=== PATIENT | female | born 1995 | race Hispanic/Latino ===

== ENCOUNTER 2024-04-25 22:19 | Emergency (ER) | payer SELFPAY ==
[~2024-04-25] VITALS: Ht 160 cm; Wt 77.1 kg
[2024-04-25] MEDS: FAMOTIDINE 20MG VIAL IV ONE (22:43)
[2024-04-25] MEDS: 0.9%NACL 1000ML 1,000 ML IV ONE (22:43)
[2024-04-25] MEDS: ondanSETRON 4MG INJ IVP ONE (22:43)
[2024-04-25 22:47] LABS: BASOPHILS # (AUTO) 0.06 K/uL (0.00-0.20); BASOPHILS % (AUTO) 0.5 % (0.0-5.0); EOSINOPHILS % (AUTO) 0.9 % (0.0-8.0); HEMATOCRIT 45.2 % (36-48); IMMATURE GRANULOCYTE ABSOLUTE 0.04 K/uL (0-1); LYMPHOCYTES # (AUTO) 4.2 K/uL (1.0-4.8); LYMPHOCYTES % (AUTO) 38.4 % (21.0-51.0); MEAN CORPUSCULAR HEMOGLOBIN 29.7 pg (27.0-33.0); MEAN CORPUSCULAR HGB CONC 34.3 g/dL (32.0-36.0); MEAN CORPUSCULAR VOLUME 86.6 fL (79-99); MONOCYTES # (AUTO) 0.8 K/uL (0.1-1.0); MONOCYTES % (AUTO) 6.8 % (3.0-13.0); NEUTROPHILS # (AUTO) 5.8 K/uL (1.8-7.7); PLATELET COUNT (AUTO) 256 K/uL (130-400); RED BLOOD CELL COUNT(AUTO) 5.22 MIL/uL (4.00-5.50); RED CELL DISTRIBUTION WIDTH 12.3 % (11.0-15.5)
[2024-04-25 22:59] LABS: CREATININE 1.1 mg/dL (0.5-1.0); POTASSIUM 4.3 mmol/L (3.5-5.1)
[2024-04-25 23:03] LABS: BILIRUBIN,DIRECT 0.1 mg/dL (0.0-0.3); BILIRUBIN,TOTAL 0.4 mg/dL (0.2-1.0)
[2024-04-25 23:06] LABS: APPEARANCE,URINE CLEAR (CLEAR); BILIRUBIN,URINE NEGATIVE (NEGATIVE); COLOR,URINE YELLOW (YELLOW); GLUCOSE, URINE (UA) NEGATIVE (NEGATIVE); KETONES,URINE NEGATIVE (NEGATIVE); LEUKOCYTE ESTERASE ,URINE NEGATIVE Leu/uL (NEGATIVE); NITRATE,URINE NEGATIVE (NEGATIVE); OCCULT BLOOD,URINE NEGATIVE (NEGATIVE); PROTEIN,URINE 10 mg/dL (NEGATIVE); UROBILINOGEN,URINE 0.2 mg/dL (0.2-1.0)
[2024-04-25 23:09] LABS: ADD UA MICROSCOPIC YES
[2024-04-25 23:10] LABS: BACTERIA,URINE FEW /HPF (None Seen); MUCUS,URINE RARE LPF (None Seen); SQUAMOUS EPITHELIAL CELL,UR RARE /HPF (0-2)
[2024-04-25] MEDS: DICYCLOMINE HCL 10 MG/5 ML ML PO ONE (23:15)
[2024-04-25] MEDS: MAG/ALUM/SIMETH 30 ML UDCUP PO ONE (23:15)
[2024-04-25] MEDS: LIDOCAINE HCL 2% VISCOUS 15 ML UDCUP PO ONE (23:15)
--- NOTE | 2024-04-26 00:20 | HMCIMG ---
CT ABDOMEN/PELVIS W/O CONTRAST HISTORY: Abnormal pain COMPARISON: None TECHNIQUE: Multiple sequential axial images of the abdomen and pelvis were obtained from the dome of the diaphragm through symphysis pubis. Patient was not given contrast through intravenous route. Oral contrast was not given. FINDINGS: No pleural effusion is seen bilaterally. There is no evidence of parenchymal disease or pulmonary nodule of the visualized lower lungs. Degenerative changes of the thoracolumbar spine are present. The heart is not enlarged. Postcholecystectomy changes are seen. Liver is enlarged measuring 16 cm. The liver, spleen, adrenal glands and pancreas are unremarkable. There is no evidence of hydronephrosis bilaterally. No evidence of renal stone is seen. Fecal material is seen in the colon. There are normal size retroperitoneal and mesenteric lymph nodes. No ascites is seen. No CT evidence of acute appendicitis is seen. Pelvic sidewalls are symmetric bilaterally. Bladder is poorly distended. IMPRESSION: 1. No acute findings. CT was performed with one or more following dose reduction techniques: automated exposure control, adjustment of the mA and kv according to patient's size, or use of a iterative reconstruction technique.
[2024-04-26] MEDS ORDERED: ONDA-243 PO (00:26)
[2024-04-26] MEDS ORDERED: FAMO-136 PO (00:26)
--- NOTE | 2024-04-26 00:30 | ERN ---
General Chief Complaint: Abdominal Pain Stated Complaint: ABD PAIN Time Seen by MD: 22:21 Time Seen by Midlevel: 22:21 Source: patient History of Present Illness Initial Comments Patient is a 29-year-old female with a past medical history of gastritis presenting to the emergency department with midepigastric abdominal pain. She also reports hot flushes. Denies any fever, chills, or any other symptoms at this time. On arrival she does report feeling anxious because her mom has been diagnosed with colon cancer in his concerned that she may have cancer. She does not have a primary care doctor at this time. Denies any surgical history. No other symptoms reported at this time. Allergies: Coded Allergies: No Known Drug Allergies (Unverified Allergy, Unknown, 04/25/24) Home Meds Active Scripts Famotidine (Pepcid) 20 Mg Tablet, 1 TAB PO BID for 10 Days, #20 TAB 0 Refills Prov:RAMESH CULLEN 04/26/24 Ondansetron (Ondansetron Odt) 4 Mg Tab.rapdis, 4 MG PO BID for 7 Days, #14 TAB Prov:RAMESH CULLEN 04/26/24 Past Medical History Past Medical History: Other Medical History Other: GASTRITIS Past Surgical History: Cholecystectomy, Female( History) LMP: Mar 22, 2024 ROS Dictation CONSTITUTIONAL: Negative except for HPI HEAD/FACE: Negative except for HPI EENT: Negative except for HPI RESPIRATORY: Negative except for HPI GASTROINTESTINAL/ABDOMINAL: Negative except for HPI GENITOURINARY: Negative except for HPI MUSCULOSKELETAL: Negative except for HPI INTEGUMENTARY: Negative except for HPI NEUROLOGICAL/PSYCH: Negative except for HPI HEMATOLOGIC/LYMPHATIC: Negative except for HPI All Systems Negative, Except as noted above. 13 point review of systems assessed and all negative except for above. Physical Exam Physical Exam Dictation Vital Signs reviewed General Appearance: Alert, oriented x 3, no acute distress, well developed, nourished. Head and Face: non-traumatic. Eyes: PERRL, pink conjunctivas, eyelid no trauma, anterior chamber with arcus senilis. Ears: Pinnas intact and no signs of trauma or erythema ear canals clear and no discharge TM no erythema Nose: No discharge, no bleeding. Oropharynx: Mouth normal, tongue pink, pharynx clear,no erythema, tonsils no exudates, no abscesses noted, mucous membrane moist Neck: Supple, non-tender, no thyromegaly, no masses, no JVD, no bruits Breast:Deferred Chest:No tenderness, no crepitus, no paradoxical movement, no retractions Lungs:Clear, well-ventilated, symmetric, no rales, no wheezing, no rhonchi, no stridor, good breath sounds bilaterally Heart: Regular rate, regular rhythm, no murmur, no gallops Vascular: no peripheral edema, Abdomen: Soft, positive bowel sounds, nondistended, no guarding, nontender, no rebound, no masses no hepatomegaly, no splenomegaly, no Xavier's sign, no hernias. Rectal: Deferred Genital: Deferred Neurological: Normal speech, motor function intact, sensory function intact Musculoskeletal: Neck nontender, full range of motion, back nontender, full range of motion, Extremities: nontender, full range of motion Skin: Color pink, dry, no turgor, no rash, no lacerations, no abrasions, no contusions. Lymphatic: Deferred Results Laboratory and Microbiology Lab and Micro Result Laboratory Tests Test 04/25/24 22:34 04/25/24 22:39 Urine Color YELLOW (YELLOW) Urine Appearance CLEAR (CLEAR) Urine pH 6.0 (5.0-8.0) Urine Specific [place] 1.035 (1.001-1.031) Urine Protein 10 mg/dL (NEGATIVE) H Urine Glucose (UA) NEGATIVE mg/dL (NEGATIVE) Urine Ketones NEGATIVE mg/dL (NEGATIVE) Urine Occult Blood NEGATIVE (NEGATIVE) Urine Nitrate NEGATIVE (NEGATIVE) Urine Bilirubin NEGATIVE mg/dL (NEGATIVE) Urine Urobilinogen 0.2 mg/dL (0.2-1.0) Urine Leukocyte Esterase NEGATIVE [place]/uL Urine RBC 2-5 /HPF (0-1) H Urine WBC 2-5 /HPF (0-1) H Urine Squamous Epithelial Cells RARE /HPF (0-2) Urine Bacteria FEW /HPF (None Seen) White Blood Count 11.0 K/uL (4.8-10.8) H Red Blood Count 5.22 MIL/uL (4.00-5.50) Hemoglobin 15.5 g/dL (12.0-16.0) Hematocrit 45.2 % (36-48) Mean Corpuscular Volume 86.6 fL (79-99) Mean Corpuscular Hemoglobin 29.7 pg (27.0-33.0) Mean Corpuscular Hemoglobin Concent 34.3 g/dL (32.0-36.0) Red Cell Distribution Width 12.3 % (11.0-15.5) Platelet Count 256 K/uL (130-400) Mean Platelet Volume 9.2 fL (7.5-10.5) Immature Granulocyte % (Auto) 0.4 % (0-1) Neutrophils (%) (Auto) 53.0 % (40.0-77.0) Lymphocytes (%) (Auto) 38.4 % (21.0-51.0) Monocytes (%) (Auto) 6.8 % (3.0-13.0) Eosinophils (%) (Auto) 0.9 % (0.0-8.0) Basophils (%) (Auto) 0.5 % (0.0-5.0) Neutrophils # (Auto) 5.8 K/uL (1.8-7.7) Lymphocytes # (Auto) 4.2 K/uL (1.0-4.8) Monocytes # (Auto) 0.8 K/uL (0.1-1.0) Eosinophils # (Auto) 0.10 K/uL (0.00-0.70) Basophils # (Auto) 0.06 K/uL (0.00-0.20) Absolute Immature Granulocyte (auto 0.04 K/uL (0-1) Nucleated Red Blood Cells 0.0 % (0.0-0.19) Sodium Level 145 mmol/L (136-145) Potassium Level 4.3 mmol/L (3.5-5.1) Chloride Level 106 mmol/L (101-111) Carbon Dioxide Level 29 mmol/L (21-32) Blood Urea Nitrogen 14 mg/dL (7-18) Creatinine 1.1 mg/dL (0.5-1.0) H Glomerular Filtration Rate Calc 70 mL/min (>90) Random Glucose 106 mg/dL (70-105) H Total Calcium 9.7 mg/dL (8.5-10.1) Total Bilirubin 0.4 mg/dL (0.2-1.0) Direct Bilirubin 0.1 mg/dL (0.0-0.3) Aspartate Amino Transf (AST/SGOT) 17 U/L (10-37) Alanine Aminotransferase (ALT/SGPT) 25 U/L (12-78) Alkaline Phosphatase 114 U/L (50-136) Total Protein 8.0 g/dL (6.0-8.3) Albumin 4.0 g/dL (3.5-5.0) Lipase 51 U/L (16-77) Serum Test, Qualitative NEGATIVE (NEGATIVE) Labs Reviewed?: Yes MDM MDM: Patient is a 29-year-old female with a past medical history of gastritis presenting to the emergency department with midepigastric abdominal pain. She also reports hot flushes. Denies any fever, chills, or any other symptoms at this time. On arrival she does report feeling anxious because her mom has been diagnosed with colon cancer in his concerned that she may have cancer. She does not have a primary care doctor at this time. Denies any surgical history. No other symptoms reported at this time. On physical examination patient is anxious appearing. She has mild epigastric abdominal tenderness but no rebound or guarding. She is afebrile and nontoxic appearing. Her CBC is stable with a white blood cell count of 11.0. Her hemoglobin is normal at 15.5. Platelets are normal at 256. Her chemistries are unremarkable. Her urinalysis not show any evidence of infection. Patient was given IV Zofran, Pepcid, and a GI cocktail. Patient states she did receive temporary relief but shortly after developed midepigastric abdominal pain. CT scan of the abdomen and pelvis was performed which reveals no acute findings. Symptoms may be related to H pylori versus gastritis. Patient was given IV Protonix and an EKG was performed to rule out an acute coronary syndrome however her EKG does not show any ST elevations or bundle branch blocks. Patient will need to follow up with her primary care doctor and possibly GI specialist for outpatient endoscopy. Differential diagnosis: Gastritis, gastroenteritis, gastroesophageal reflux disease, H pylori, There are no social concerns with this patient. Prescription drug management Prescriptions will include: Zofran and Pepcid Medical management and examination interpretation discussions were had by me with other qualified healthcare professionals as indicated for the patient's care. ED Course Orders Procedure Category Date Status Time Cbc With Differential LAB 04/25/24 Complete 22:34 Basic Metabolic Panel LAB 04/25/24 Complete 22:34 Hepatic Function Panel LAB 04/25/24 Complete 22:34 Lipase LAB 04/25/24 Complete 22:34 Urinalysis Profile LAB 04/25/24 Complete 22:34 Testing, LAB 04/25/24 Complete Serum Hcg 22:34 Ondansetron 4mg Inj PHA 04/25/24 Complete (Zofran 4mg Inj) 23:00 Famotidine 20mg Vial PHA 04/25/24 Complete (Pepcid 20mg Vial) 23:00 0.9%Nacl 1000ml (Ns PHA 04/25/24 Complete 1000ml) 23:00 Ct Abdomen/Pelvis W/O CT 04/25/24 Resulted Contrast 22:34 Lidocaine Hcl 2% PHA 04/25/24 Complete Viscous (Lidocaine Hcl 23:30 Mag/Alum/Simeth 30ml PHA 04/25/24 Complete (Maalox Plus 30ml) 23:30 Dicyclomine Hcl PHA 04/25/24 Complete (Bentyl 10mg/5ml 23:30 Pantoprazole 40mg Inj PHA 04/26/24 Complete (Protonix 40mg Inj 01:00 12 Lead Ekg Tracing- EKG 04/26/24 Logged Technical 00:38 Current Medications Medications (Trade) Dose Ordered Sig/Arnie Route PRN Reason Start Time Stop Time Status Last Admin Dose Admin Al Hydroxide/Mg Hydroxide (MAALox PLUS 30ML) 30 ml ONCE ONCE PO 04/25/24 23:30 04/25/24 23:31 DC 04/25/24 23:15 Dicyclomine HCl (Bentyl 10mg/5ml Syrup) 10 mg ONCE ONCE PO 04/25/24 23:30 04/25/24 23:31 DC 04/25/24 23:15 Famotidine (Pepcid 20mg Vial) 20 mg ONCE ONCE IV 04/25/24 23:00 04/25/24 23:01 DC 04/25/24 22:43 Lidocaine HCl (Lidocaine HCl 2% Viscous) 10 ml ONCE ONCE PO 04/25/24 23:30 04/25/24 23:31 DC 04/25/24 23:15 Ondansetron HCl (zoFRAN 4MG INJ) 4 mg ONCE ONCE IVP 04/25/24 23:00 04/25/24 23:01 DC 04/25/24 22:43 Pantoprazole Sodium (PROTonix 40MG INJ) 40 mg ONCE ONCE IVP 04/26/24 01:00 04/26/24 01:01 DC 04/26/24 01:09 Sodium Chloride 1,000 ml @ 0 mls/hr ONCE ONCE IV 04/25/24 23:00 04/25/24 23:01 DC 04/25/24 22:43 Vital Signs Date Time Temp Pulse Resp B/P (MAP) Pulse Ox O2 Delivery O2 Flow Rate FiO2 04/26/24 01:13 98.2 64 20 122/86 100 Room Air* 0 21 04/25/24 22:27 98.2 66 20 128/88 100 Room Air* 0 21 04/25/24 22:21 98.8 65 18 129/96 99 0 [facility] [id number] [address] IMAGING REPORT Signed PATIENT: JASPER URBINA MR#: [id number] : 1995 SEX: F AGE: 29 LOCATION: [facility] ORDER 38 STATUS: REG REPORT#: [id number] SERVICE 33 REASON: mid epigastric abd pain/ruq abd pain ORDERING PHYSICIAN: RAMESH CULLEN PROCEDURE: ABD PEL WO - CT ABDOMEN/PELVIS W/O CONTRAST CT ABDOMEN/PELVIS W/O CONTRAST HISTORY: Abnormal pain COMPARISON: None TECHNIQUE: Multiple sequential axial images of the abdomen and pelvis were obtained from the dome of the diaphragm through symphysis pubis. Patient was not given contrast through intravenous route. Oral contrast was not given. FINDINGS: No pleural effusion is seen bilaterally. There is no evidence of parenchymal disease or pulmonary nodule of the visualized lower lungs. Degenerative changes of the thoracolumbar spine are present. The heart is not enlarged. Postcholecystectomy changes are seen. Liver is enlarged measuring 16 cm. The liver, spleen, adrenal glands and pancreas are unremarkable. There is no evidence of hydronephrosis bilaterally. No evidence of renal stone is seen. Fecal material is seen in the colon. There are normal size retroperitoneal and mesenteric lymph nodes. No ascites is seen. No CT evidence of acute appendicitis is seen. Pelvic sidewalls are symmetric bilaterally. Bladder is poorly distended. IMPRESSION: 1. No acute findings. CT was performed with one or more following dose reduction techniques: automated exposure control, adjustment of the mA and kv according to patient's size, or use of a iterative reconstruction technique. DICTATED BY: NASIM HBUER MD DATE: 04/25/241 ELECTRONICALLY SIGNED BY: NASIM HUBER MD DATE: 04/26/24 0020 DX & DISP Disposition: Discharge Departure Impression: Primary Impression: Gastritis Condition: Stable Scripts Famotidine (Pepcid) 20 Mg Tablet 1 TAB PO BID for 10 Days, #20 TAB 0 Refills Prov: RAMESH CULLEN 04/26/24 Ondansetron (Ondansetron Odt) 4 Mg Tab.rapdis 4 MG PO BID for 7 Days, #14 TAB Prov: RAMESH CULLEN 04/26/24 Additional Instructions: Your blood work today is unremarkable. Your CT scan of the abdomen/pelvis does not show any acute abnormality. You may need to follow up with the GI specialist so they can test you for H pylori and possibly perform an endoscopy outpatient. Follow up with your primary care doctor for repeat evaluation. Return to the ER if you develop new or worsening symptoms Referrals: SELF,REFERRAL (PCP) ANDREW RICH MD I have reviewed the case, and I agree with, Diagnosis and Plan I performed the substantive portion of the visit. I have reviewed and personally made and approve the management plan that is documented in the note by myself or the BEN. I acknowledge for responsibility for the patient's management plan. RAMESH CULLEN Apr 26, 2024 00:30
[2024-04-26] MEDS: PANTOPrazole 40 MG/VIAL IVP ONE (01:09)
[2024-04-26 01:13] VITALS: BP 122/86; PULSE 64; RESP 20; TEMP 98.3; O2SAT 100
--- NOTE | 2024-04-26 23:38 | EKG ---
[facility] Test Date: 2024-04-26 Test Time: 00:42:30 Pat Name: JASPER CHEATHAM Department: ED Room: Gender: Female Sander Portable Machine: [id number] : 1995 Requested By: RAMESH CULLEN Order Number: [id number] Reading MD: Measurements Intervals [place] Rate: 56 P: 16 OK: 150 QRS: 77 QRSD: 67 T: 51 QT: 417 QTc: 402 Interpretive Statements Sinus rhythm No previous ECG available for comparison Please click the below link to view image of tracing.
== END 2024-04-26 01:16 | disposition home or self-care (01) ==
LOC: EDH 22:19
DX: K29.70 Gastritis, unspecified, without bleeding (principal); Z79.899 Other long term (current) drug therapy; Z90.49 Acquired absence of other specified parts of digestive tract; Z98.890 Other specified postprocedural states
CPT/HCPCS: 99285; 74176; 96374; 96375 ×2; 80076; 80048; 84703; 83690; 85025; 81001; 36415; 93005; J3490; J7030; J2405; J2470